=== PATIENT | male | born 1960 | race Caucasian/White ===

== ENCOUNTER 2016-03-27 01:39 | Observation (INO) | payer MEDICAID ==
[2016-03-27] MEDS ORDERED: ZOLPIDEM TARTRATE 5 MG TAB PO PRN (01:56)
[2016-03-27] MEDS ORDERED: LORAZEPAM 1 MG TAB PO PRN (01:56)
[2016-03-27] MEDS ORDERED: ONDANSETRON HCL 4 MG ODT TAB PO PRN (01:56)
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
[2016-03-27 02:01] VITALS: BMI 22.1
--- NOTE | 2016-03-27 02:27 | DIRPT ---
CLINICAL DATA: Acute onset of cough and right lower chest pain. Initial encounter. EXAM: CHEST 2 VIEW COMPARISON: Chest radiograph from 07/29/2015 FINDINGS: The lungs are mildly hyperexpanded, raising question for mild COPD. There is no evidence of focal opacification, pleural effusion or pneumothorax. The heart is normal in size; the mediastinal contour is within normal limits. No acute osseous abnormalities are seen. IMPRESSION: Suggestion of mild COPD. Lungs otherwise clear. Electronically Signed By: Spenser Harrison M.D. On: 03/27/2016 02:24
[2016-03-27 02:28] LABS: LEUKOCYTES/URINE NEG (NEGATIVE); NITRITE/URINE NEG (NEGATIVE); RBC/URINE 0-2 (0-2); URINE OCCULT BLOOD NEG (NEG/TRACE); WBC/URINE 0-2 (0-2)
[2016-03-27 02:30] LABS: ALL NEG? YES; MDMA* NEG (NEGATIVE); METHAMPHETAMINES NEG (NEGATIVE); OXYCODONE NEG (NEGATIVE)
[2016-03-27 03:00] LABS: AUTOMATED BASOPHIL 1.1 % (0-2); AUTOMATED EOSINOPHIL 7.4 % (0-5); AUTOMATED LYMPH 32.3 % (17-44); AUTOMATED MONOCYTE 7.3 % (3-10); AUTOMATED NEUTROPHIL 51.9 % (45-76)
[2016-03-27 03:08] LABS: BLOOD UREA NITROGEN 20 MG/DL (9-20); CALC CORRECTED 9.5 MG/DL (8.4-10.2); CALCIUM 9.4 MG/DL (8.4-10.2); CALCULATED OSMOLALITY 278 MOs/Kg (270-290); CHLORIDE 108 mEq/L (98-107); ETOH-MGDL < 10 mg/dL; GLUCOSE 97 MG/DL (70-99); SODIUM LEVEL 143 mEq/L (137-146)
[2016-03-27] MEDS ORDERED: ALBUTEROL 6.7 GM MDI INH SCH (06:09)
[2016-03-27] MEDS: NICOTINE 21 MG PATCH TOP SCH (06:16)
[2016-03-27] MEDS: ALBUTEROL 6.7 GM MDI INH PRN ×2 (06:18→19:31)
[2016-03-27] MEDS ORDERED: FLUTICASONE/SALMETEROL 250/50 DISKUS INH SCH (07:00)
[2016-03-27] MEDS: FLUTICASONE/SALMETEROL 250/50 DISKUS INH SCH ×2 (09:31→20:30)
[2016-03-27] MEDS: LISINOPRIL 10 MG TAB PO SCH (09:52)
[2016-03-27] MEDS: IBUPROFEN 400 MG TAB PO PRN (18:01)
[2016-03-27] MEDS: GUAIFENESIN 200 MG/10 ML UDC PO PRN (18:02)
[2016-03-28] MEDS: NICOTINE 21 MG PATCH TOP SCH (06:15)
[2016-03-28] MEDS: GUAIFENESIN 200 MG/10 ML UDC PO PRN (06:15)
[2016-03-28] MEDS ORDERED: PNEUMOCOCCAL 0.5 ML VIAL IM ONE (08:00)
[2016-03-28] MEDS ORDERED: FLU VACCINE (Afluria) 0.5 ML DOSE IM ONE (08:00)
[2016-03-28] MEDS: FLUTICASONE/SALMETEROL 250/50 DISKUS INH SCH ×2 (08:56→21:53)
[2016-03-28] MEDS: ALBUTEROL 6.7 GM MDI INH PRN ×2 (08:58→21:55)
[2016-03-28] MEDS: LISINOPRIL 10 MG TAB PO SCH (09:05)
[2016-03-28] MEDS: IBUPROFEN 400 MG TAB PO PRN ×2 (09:10→18:14)
[2016-03-28] MEDS: ACETAMINOPHEN 325 MG/TAB TABLET PO PRN ×2 (09:11→18:15)
[2016-03-29] MEDS: LISINOPRIL 10 MG TAB PO SCH (07:54)
[2016-03-29] MEDS: NICOTINE 21 MG PATCH TOP SCH (07:55)
[2016-03-29] MEDS: ALBUTEROL 6.7 GM MDI INH PRN (09:42)
[2016-03-29] MEDS: FLUTICASONE/SALMETEROL 250/50 DISKUS INH SCH (09:43)
[2016-03-29 11:47] VITALS: BP 141/91; PULSE 93; TEMP 97.7
[2016-03-29] MEDS: IBUPROFEN 400 MG TAB PO PRN (13:01)
[2016-03-29] MEDS: ACETAMINOPHEN 325 MG/TAB TABLET PO PRN (13:03)
== END 2016-03-29 14:55 | disposition home or self-care (01) ==
LOC: ED 01:39 → TUOBSINP 07:12
PROVIDERS: ADMIT Physician Assistant Medical; ATTEND Physician Assistant Medical
DX: F22 Delusional disorders (principal); F23 Brief psychotic disorder; I10 Essential (primary) hypertension; E78.00 Pure hypercholesterolemia, unspecified; J44.9 Chronic obstructive pulmonary disease, unspecified; F17.200 Nicotine dependence, unspecified, uncomplicated; F15.10 Other stimulant abuse, uncomplicated; F14.10 Cocaine abuse, uncomplicated; Z79.899 Other long term (current) drug therapy; Z23 Encounter for immunization
CPT/HCPCS: 36415; 71020; 80053; 80307; 81001; 85025; 86592; 90471; 90472; 90656; 90732; 93005; 94640; 99285; G0378; J3490